=== PATIENT | male | born 1975 | race American Indian/Alaskan Native ===

== ENCOUNTER 2020-02-09 02:45 | Emergency (ER) | payer OTHER ==
[2020-02-09 03:23] VITALS: BP 127/71
[2020-02-09] MEDS ORDERED: ACETAMINOPHEN 500 MG TAB PO ONE (04:32)
[2020-02-09] MEDS ORDERED: IBUPROFEN 600 MG TAB PO ONE (04:32)
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
== END 2020-02-09 06:31 | disposition home or self-care (01) ==
LOC: ED 02:45
DX: M62.830 Muscle spasm of back (principal); Z79.1 Long term (current) use of non-steroidal anti-inflammatories (NSAID); Z79.899 Other long term (current) drug therapy; V49.49XA Driver injured in collision with other motor vehicles in traffic accident, initial encounter; Y93.89 Activity, other specified; Y92.410 Unspecified street and highway as the place of occurrence of the external cause; Y99.8 Other external cause status
CPT/HCPCS: 72040; 72100

== ENCOUNTER 2020-08-03 18:47 | Observation (INO) | payer OTHER ==
--- NOTE | 2020-08-03 18:55 | Emergency Department Report ---
Blank Doc - Documentation Documentation: 45-year-old male that presents with left sided chest pain and sob. HX of hype rcholesterolemia. This initial assessment/diagnostic orders/clinical plan/treatment(s) is/are subject to change based on patient's health status, clinical progression and re- assessment by fellow clinical providers in the ED. Further treatment and workup at subsequent clinical providers discretion. Patient/guardians urged not to elope from the ED as their condition may be serious if not clinically assessed and managed. Initial orders include: 1- Patient sent to [facility] for further evaluation and treatment 2- cardiac workup
[2020-08-03 18:56] VITALS: BP 134/83
--- NOTE | 2020-08-03 19:28 | XRay Report ---
CHEST PA AND LATERAL VIEWS INDICATION: Chest Pain. COMPARISON: None. FINDINGS: Support devices: None. Heart: Within normal limits. Lungs/Pleura: No acute pulmonary or pleural findings. IMPRESSION: 1. No acute findings. Signer Name: Basim Chen MD Signed: 08/03/2020 7:23 PM Workstation Name: [id number]
[2020-08-03 19:39] LABS: Basophils % (Auto) 0.5 % (0.0-1.8); Eosinophils # (Auto) 0.1 K/mm3 (0.0-0.4); Eosinophils % (Auto) 1.2 % (0.0-4.3); Hematocrit 46.2 % (35.5-45.6); Hemoglobin 15.7 gm/dl (11.8-15.2); Lymphocytes # (Auto) 2.4 K/mm3 (1.2-5.4); Lymphocytes % (Auto) 42.6 % (13.4-35.0); Mean Corpuscular HGB Conc 34 % (32-34); Mean Corpuscular Volume 92 fl (84-94); Monocytes # (Auto) 0.6 K/mm3 (0.0-0.8); Platelet Count 237 K/mm3 (140-440); Red Blood Count 5.05 M/mm3 (3.65-5.03); Red Cell Distribution Width 13.1 % (13.2-15.2)
[2020-08-03 19:50] LABS: INR 1.06 (0.87-1.13); Partial Thromboplastin Time 34.9 Sec. (24.2-36.6)
[2020-08-03 19:58] LABS: Alanine Aminotransferase 38 units/L (7-56); Albumin 4.7 g/dL (3.9-5); BUN/Creatinine Ratio 10; Blood Urea Nitrogen 10 mg/dL (9-20); Calcium 9.9 mg/dL (8.4-10.2); Hemolysis Index 10
[2020-08-03] MEDS ORDERED: ASPIRIN 325 MG TAB PO ONE (21:47)
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
[2020-08-04] MEDS ORDERED: MAGNESIUM HYDROXIDE (MOM) ORAL LIQD UDC PO PRN (00:29)
[2020-08-04] MEDS ORDERED: ACETAMINOPHEN 325 MG TAB PO PRN ×2 (00:29)
[2020-08-04] MEDS ORDERED: NITROGLYCERIN 0.4 MG TAB SUBL SL PRN (00:29)
[2020-08-04] MEDS ORDERED: MORPHINE 4 MG/1 ML INJ IV PRN (00:29)
[2020-08-04] MEDS ORDERED: hydrALAZINE 20 MG/1 ML INJ IV PRN (00:29)
[2020-08-04] MEDS ORDERED: ONDANSETRON 4 MG/2 ML INJ IV PRN (00:29)
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
[2020-08-04 02:13] LABS: Basophils % (Auto) 0.4 % (0.0-1.8); Eosinophils # (Auto) 0.1 K/mm3 (0.0-0.4); Eosinophils % (Auto) 3.1 % (0.0-4.3); Hematocrit 42.8 % (35.5-45.6); Hemoglobin 14.5 gm/dl (11.8-15.2); Lymphocytes # (Auto) 2.2 K/mm3 (1.2-5.4); Lymphocytes % (Auto) 48.2 % (13.4-35.0); Mean Corpuscular HGB Conc 34 % (32-34); Mean Corpuscular Volume 91 fl (84-94); Monocytes # (Auto) 0.5 K/mm3 (0.0-0.8); Monocytes % (Auto) 11.8 % (0.0-7.3); Platelet Count 191 K/mm3 (140-440); Red Blood Count 4.73 M/mm3 (3.65-5.03); Red Cell Distribution Width 13.3 % (13.2-15.2)
[2020-08-04 02:26] LABS: BUN/Creatinine Ratio 13; Blood Urea Nitrogen 10 mg/dL (9-20); Calcium 9.2 mg/dL (8.4-10.2); Hemolysis Index 7
[2020-08-04] MEDS ORDERED: POTASSIUM CHLORIDE ER 20 MEQ TAB PO ONE (06:12)
--- NOTE | 2020-08-04 10:33 | Discharge Summary ---
Providers - Providers Date of Admission: 08/03/20 22:42 Date of discharge: 08/04/20 Attending physician: CAROLIN POE 08/04/20 Consult to Cardiac Rehabilitation [CONS] Routine Reason For Exam: Phase I 08/04/20 00:30 Consult to Cardiology [CONS] Routine Consulting Provider: YESENIA BORJAS Reason For Exam: Chest Primary care physician: CONTINUING EDUCATION DEAN Hospitalization Reason for admission: cp Condition: Fair Hospital course: 45-year-old male with known history of dyslipidemia and who is also a former smoker presenting to the emergency room complaining of chest pain. Work-up in the emergency room today reveals diffuse ST elevation which shows possible pericarditis on the EKG. D-dimer, troponin and chest x-ray were unremarkable. Patient admitted for chest pain work-up. The patient had a cardiology consultation ordered. Patient was also scheduled for stress test but left the hospital AMA. Patient left AMA prior to my evaluation. Dedicated discharge time 32 minutes Disposition: [id number] LEFT AGAINST MED ADVICE Time spent for discharge: 32 - Discharge Diagnoses (1) Chest pain Status: Acute (2) Dyslipidemia Status: Acute Core Measure Documentation - Palliative Care Palliative Care/ Comfort Measures: Not Applicable - Core Measures Any of the following diagnoses?: none Exam - Constitutional Vitals: Temp Pulse Resp BP Pulse Ox 97.6 F 87 20 134/83 97 08/03/20 18:54 08/03/20 18:54 08/03/20 18:54 08/03/20 18:54 08/03/20 18:54 Plan Follow up with: YOUNG RAY MD [Primary Care Provider] - 3-5 Days
[2020-08-04] MEDS ORDERED: ENOXAPARIN 40 MG/0.4 ML INJ SUB-Q SCH (22:00)
[2020-08-05] MEDS ORDERED: ASPIRIN EC 325 MG TAB PO SCH (10:00)
== END 2020-08-04 05:15 | disposition left against medical advice (07) ==
LOC: ED 18:47 → 4A 22:42
PROVIDERS: ADMIT Internal Medicine Geriatric Medicine; ATTEND Hospitalist
DX: R07.89 Other chest pain (principal); E78.5 Hyperlipidemia, unspecified; Z87.891 Personal history of nicotine dependence; Z79.82 Long term (current) use of aspirin
CPT/HCPCS: 36415; 71046; 80048; 80053; 84484; 85025; 85379; 85610; 85730; 93005; 99285; G0378